=== PATIENT | female | born 1970 | race Caucasian/White ===

== ENCOUNTER 2021-04-11 10:56 | Day surgery (SDC) | payer OTHER, SELFPAY ==
--- NOTE | 2021-04-11 06:32 | W.ANESPRE ---
General Info Date of Service Date Performed: 04/11/21 Height: 5 ft 8 in Weight: 78 kg Body Mass Index (BMI): 26.1 Surgical Procedure: Operation Date: 04/11/21 13:25 Proposed Procedures Side Surgeon p Cataract Extraction with IOL Implant Right Luciano Galloway MD Meds Allergies and Home Medications Allergies Allergy/AdvReac Type Severity Reaction Status Date / Time gabapentin AdvReac Severe Headache Unverified 04/11/21 11:24 Home Medication Medication Instructions Recorded albuterol sulfate 2 puff INHALATION QID 04/08/21 atorvastatin 10 mg PO DAILY 04/08/21 dicyclomine 20 mg PO TID 04/08/21 ibuprofen 800 mg PO Q8H PRN 04/08/21 oxycodone-acetaminophen [Percocet] 1 tab PO TID 04/08/21 prochlorperazine maleate 5 mg PO TID PRN 04/08/21 [Compazine] sertraline 100 mg PO DAILY 04/08/21 Current Visit Medications: Current Medications Generic Name Dose Route Start Last Admin Trade Name Freq PRN Reason Stop Dose Admin Acetaminophen 1,000 mg 04/11/21 06:00 Acetaminophen 500 Mg Tab PO Q4H PRN PRN Miscellaneous Medication 0 ml 04/11/21 06:00 Prednisolone 1%, Moxifloxacin 0.5%, Nepafenac 0.1% 5ml Btl OD DIRECTED [facility] Miscellaneous Medication 0 ml 04/11/21 06:00 Tropicam./Phenyleph. (1/2.5%) 5 Ml Btl OD DIRECTED [facility] Tetracaine HCl 0 ml 04/11/21 06:00 Tetracaine 0.5% 4 Ml Btl OD DIRECTED [facility] PFSH Active Problems Active Problems: Problem Status Onset Code Posterior subcapsular age-related cataract, right eye H25.041 Cortical cataract of right eye H26.9 Nuclear sclerotic cataract of right eye H25.11 Medical History Medical History Chronic left-sided low back pain with left-sided sciatica Chronic pain disorder Depression Enlarged thyroid IBS (irritable bowel syndrome) Insomnia Lumbar disc herniation with radiculopathy Lung nodule Mild intermittent asthma Pure hypercholesterolemia Tobacco abuse Surgical History Surgical History (Updated 04/11/21 @ 11:24 by Felicity Day) History of lumbar spinal fusion Hx of hernia repair Hx of hysterectomy Tobacco Smoking/Tobacco Use Status: Current every day Tobacco Type: cigarettes Alcohol Alcohol Intake: never Substance Use Substance use: Occasionally Substance use type: marijuana Vital Signs and Lab Results Lab Results Blood Type / Crossmatch: No Data to Display Complete Blood Count: No Data to Display Complete Metabolic Panel: No Data to Display Liver Function Panel: No Data to Display Coagulation Panel: No Data to Display Cardiac Panel: No Data to Display Arterial Blood Gas: No Data to Display Venous Blood Gas: No Data to Display Pancreas Panel: No Data to Display Thyroid Panel: No Data to Display Infectious Disease: No Data to Display Blood Cultures: No Data to Display Toxicology Panel: No Data to Display Panel: No Data to Display Anesthesia Assessment and Plan Anesthesia History Personal History: No History of Anesthesia Complications Family History: No Family History of Anesthesia Complications Exercise Tolerance Exercise Tolerance: Metabolic Equivalents>4 Cardiac & Pulmonary Exam Cardiac Exam: Normal S1/S2 Heart Sounds Pulmonary Exam: Clear Bilateral Breath Sounds Airway Exam Known Difficult Airway: No Mallampati Class: 2 Mouth Opening: Normal (> 3cm) Thyromental Distance: Greater than 3 cm Neck Range of Motion: Full ROM Neck Circumference: Normal Teeth Condition: Normal Dentition (Missing lower teeth) ASA Classification ASA Score: ASA 2 Emergency Case?: No NPO Status NPO Status: NPO Clears >2 hours, Solids >8 hours Status Status: Not Relevant due to Medical History Anesthesia Plan Resuscitation Status: Full Code Anesthesia Technique: MAC Anesthesia Airway Planned: Natural Airway Monitors Used: Standard Monitors
[2021-04-11 11:26] VITALS: BP 102/64; PULSE 63; RESP 16; TEMP 36.4; O2SAT 97
[2021-04-11] MEDS: Tropicam./Phenyleph. (1/2.5%) 5 ML BTL OD ×3 (11:34→11:44)
[2021-04-11 11:38] VITALS: BMI 26.1
[2021-04-11] MEDS: Tetracaine 0.5% 4 ML BTL OD (12:21)
[2021-04-11] MEDS: Trypan Blue 0.06% 0.5 ML SYR (12:22)
[2021-04-11] MEDS: Duovisc Viscoelastic System EACH 1 EACH (12:23)
[2021-04-11] MEDS: Balanced Salt Soln.-PLUS 500 ML BAG (12:23)
[2021-04-11] MEDS: Lidocaine 2% Jelly 6 ML SYR (12:24)
[2021-04-11] MEDS: Lidocaine 1% Pres-Free 5 ML VIAL (12:24)
[2021-04-11] MEDS: Povidone-Iodine Ophth 30 ML BTL (12:27)
[2021-04-11 12:48] VITALS: BP 114/67; PULSE 61; RESP 16; TEMP 36.5; O2SAT 98
--- NOTE | 2021-04-11 12:48 | W.ANESPOSTOP ---
Postoperative Evaluation Date, Time and Location Date Performed: 04/11/21 Time Performed: 12:48 Patient Location: Day Surgery Unit Vital Signs Most Recent Imported Vital Signs: Most Recent Vital Signs Temp Pulse Resp BP Pulse Ox 36.4 C L 63 16 102/64 97 04/11/21 11:04/11/21 11:04/11/21 11:04/11/21 11:04/11/21 11:26 Most Recent Manually Entered Vital Signs: Adult Blood Pressure: 114/67 Heart Rate: 60 Respirations: 16 Oxygen Saturation (%): 98 Temperature (C): 36.5 C Pain Score (0-10 Scale): 8 Pain Score Most Recent Pain Score: Most Recent Pain Score Pain Level 8 04/11/21 11:26 Assessment Mental Status: Awake (Alert & Oriented to Patient Baseline) Airway and Respiratory Function: Patent airway with normal (patient baseline) respiratory exam Cardiovascular Function: Hemodynamically Stable Hydration Status: Adequately Hydrated Nausea & Vomiting: No Nausea or Vomiting Pain: Pain is Moderate or Severe Postoperative Pain Management: Patient having pain, declines treatment, wishes to be discharged Peripheral Nerve Block: Other (Local by Dr. Galloway)
--- NOTE | 2021-04-11 12:49 | W.PM.DSUDISC ---
Discharge Plan Disposition Patient Disposition: HOME Condition: Good Discharge Details Reason For Visit: CATARACT Attending Provider: Luciano Galloway Primary Care Provider: Chayo Johnson Home Meds and New Rx's Prescriptions: No Action atorvastatin 10 mg Tablet 10 mg PO DAILY RF: 0 ibuprofen 800 mg Tablet 800 mg PO Q8H PRNRF: 0 prochlorperazine maleate [Compazine] 5 mg Tablet 5 mg PO TID PRN (Reason: Nausea) RF: 0 sertraline 100 mg Tablet 100 mg PO DAILY RF: 0 oxycodone-acetaminophen [Percocet] 10-325 mg Tablet 1 tab PO TID RF: 0 dicyclomine 20 mg Tablet 20 mg PO TID RF: 0 albuterol sulfate 90 mcg/actuation Hfa Aerosol Inhaler 2 puff INHALATION QID RF: 0 Discharge Instructions Stand Alone Forms: Post-op Topical Cataract, Maglais Velarde (DSU) Discharge Orders Discharge Orders: Discharge Order (Routine); Ordered 04/11/21 Ordered By: Luciano Galloway DS: Diagnosis Discharge Diagnosis (1) Nuclear sclerotic cataract of right eye: Status: Resolved (2) Cortical cataract of right eye: Status: Resolved (3) Posterior subcapsular age-related cataract, right eye: Status: Resolved
[2021-04-11 12:50] VITALS: TEMPC 36.5
--- NOTE | 2021-04-11 12:50 | ROE_ITS ---
Date of service: 04/11/21 Time of Service: 12:50 Operative Note Operative Note DATE OF PROCEDURE: 04/11/21 PRE-OP DIAGNOSIS: Nuclear/cortical/posterior subcapsular cataract, right eye Poor red reflex, right eye secondary to cataract POST-OP DIAGNOSIS: same PROCEDURE: Cataract extraction using phacoemulsification with intraocular lens implantation, right eye, using capsular staining with Vision Blue SURGEON: Luciano Galloway ANESTHESIA TYPE: Local By Surgeon and MAC Refer to Anesthesia Record PATHOLOGY: none sent COMPLICATIONS: None Patient was transported to: same day Patient's condition: stable Implants: [employer] Tecnis [id number] Indications: Progressive visual loss due to cataract, right eye Procedure Description: CATARACT SURGERY OPERATIVE REPORT PREOPERATIVE DIAGNOSIS: 1. Nuclear/cortical/posterior subcapsular cataract, right eye 2. Poor red reflex secondary to #1 POSTOPERATIVE DIAGNOSIS: Same OPERATION: 1. Cataract extraction using phacoemulsification with posterior chamber intraocular lens implant, right eye. 2. Capsular staining with Vision Blue IOL: IOL Knockdown Worker/Model: [employer] / [employer] Tecnis [id number] IOL Power: + 20.5 diopters IOL Serial Number: [id number] Optic Diameter: 6.0mm Haptic/Overall Diameter: 13.0mm PHACO INFO: [employer] Vision System with [employer] and [employer] Cumulative Dispersed Energy (CDE): 1.02 seconds SURGEON: Luciano Galloway MD, MAHAMED ANESTHESIA: Monitored Anesthesia Care (MAC), with local sub-tenon's anesthetic infiltration COMPLICATIONS: None SPECIMENS: None INDICATIONS FOR PROCEDURE: The patient is a 50-year-old lady with history of progressive decreased vision in her right eye. She is noted to have a dense posterior subcapsular cataract with nuclear and cortical cataract as well. The option of cataract surgery was offered to the patient and she wished to proceed. PROCEDURE: The correct surgical eye was identified and marked as the right eye and the pupil was dilated in the preoperative area using mydriatics and cycloplegics. The dilated pupil size was 7.0 mm. Oral sedation was administered in the form of an Imprimis MKO Melt (midazolam 3mg/ketamine 25mg/ondansetron 2mg). The patient was brought to the operating room where cardiopulmonary monitoring was instituted and surgical time-out was performed, confirming the correct operative eye and IOL power. Topical anesthesia was administered and ophthalmic povidone-iodine 5% was instilled into the conjunctival fornices. Lidocaine gel was applied to the cornea and the chao-ocular area was prepped with Betadine 10% solution and draped in the usual sterile fashion for intraocular surgery, including an aperture drape. A Tegaderm transparent film dressing was cut in half and used to cover the lashes and lid margins. Care was taken to sequester the lashes and lid margins under the Tegaderm dressing. A lid speculum was placed between the lids of the operative eye and the [place]-[employer] operating microscope was maneuvered into position. Vero scissors were then used to make a conjunctival buttonhole approximately 6mm posterior to the limbus in the inferonasal quadrant. Blunt dissection was carried out to expose bare sclera, and a blunt-tipped sub-tenon?s anesthesia cannula was introduced and passed posteriorly along the globe where non- preserved plain lidocaine was injected into posterior sub-Tenon?s space. A sideport knife was used to make a paracentesis port inferotemporally. Intraocular phenylephrine/lidocaine was injected into the anterior chamber. Air was injected into the anterior chamber, followed by Vision Blue, which was painted over the anterior capsule and then irrigated out with BSS. The anterior chamber was filled with viscoelastic. A 2.4mm keratome knife was used to create a half-thickness groove at the limbus and then to construct a three-plane near- clear corneal tunnel extending 2.0mm into clear cornea superiortemporally. A flap was raised on the anterior capsule and capsulorhexis forceps were used to complete a continuous curvilinear capsulorhexis of 5.0 mm. Balanced salt solution was then used to perform cortical cleaving hydrodissection and nuclear hydrodelineation until the lens could be freely rotated within the capsular bag. The lens nucleus was then disassembled and removed within the capsular bag and iris plane using phacoemulsification. Residual cortical material was removed using the I/A handpiece. The posterior capsule was carefully polished to remove as much residual lens epithelial cells as safely possible. The capsular bag was then inflated and the anterior chamber deepened with viscoelastic. The lens implant described above was inserted into the capsular bag using the [employer]AC[employer] [place] Injector. A Kuglen hook was used to dial the IOL into position. Residual viscoelastic was then removed first from posterior to the IOL, then from the anterior chamber using the I/A handpiece. The lens implant was noted to center nicely within the capsular bag. The incisions were stromally hydrated, and the anterior chamber was reformed using BSS. Then 0.5cc of moxifloxacin 1.0mg/ml were injected into the capsular bag and anterior chamber. The incisions were checked with a Weck spear and found to be secure. Several drops of ophthalmic povidone-iodine 5% were then applied to the eye followed by two drops of Imprimis combination prednisolone/moxifloxacin/nepafenac solution. The drapes were removed and a clear plastic protective eye shield was placed over the eye. The patient was then returned to Same Day Surgery in stable condition.
[2021-04-11 12:51] VITALS: BP 114/67; PULSE 60; RESP 16; O2SAT 98
[2021-04-11 13:17] VITALS: BP 117/67; PULSE 58; RESP 16; TEMP 36.3; O2SAT 100
== END 2021-04-11 13:27 | disposition home or self-care (01) ==
PROVIDERS: PCP Nurse Practitioner Family; Visit Provider Ophthalmology
PROC: (CPT 66984; principal; 2021-04-11 13:15)
DX: H25.041 Posterior subcapsular polar age-related cataract, right eye (principal); F17.210 Nicotine dependence, cigarettes, uncomplicated; R91.1 Solitary pulmonary nodule
CPT/HCPCS: 66984; V2632